=== PATIENT | male | born 1975 ===

== ENCOUNTER 2018-02-28 11:03 | Emergency (ER) | payer MEDICAID, OTHER ==
[2018-02-28] MEDS ORDERED: Sodium Chloride 0.9% 1,000 ML IV STA (11:28)
--- NOTE | 2018-02-28 11:34 | ED PDOC ---
Arrival/HPI - General Time Seen by Provider: 02/28/18 11:11 Historian: Patient - History of Present Illness Narrative History of Present Illness (Text): 02/28/18 11:34 A 42 year old male, with no significant past medical history, translated by Barb POE in Ma[place], presents to the emergency department complaining of LUQ/ LLQ pain since yesterday. Patient reports having bloody diarrhea associated with the pain. Patient denies fever, chills, nausea, vomiting, no genitourinary problems, tralor exposure, or any other complaints at this time. Also, patient mentions he smokes 1/2 pack daily, occasional drinker, however denies any substance abuse. 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 No nausea or vomiting. No back pain. No genitourinary symptoms. No chest pain palpitations or dyspnea. No dizziness or lightheadedness. No travel or exposure. No fever or chills. He does not appear ill. Works as a mig tig welder. Past Medical History - Provider Review Nursing Documentation Reviewed: Yes Family/Social History - Physician Review Nursing Documentation Reviewed: Yes Family/Social History: No Known Family HX Smoking Status: Light Smoker < 10 Cigarettes Daily Hx Alcohol Use: Yes Frequency of alcohol use: Socially Hx Substance Use: No Allergies/Home Meds Allergies/Adverse Reactions: Allergies No Known Allergies Allergy (Verified 02/28/18 11:26) Review of Systems - Physician Review All systems were reviewed & negative as marked: Yes - Review of Systems Constitutional: absent: Fatigue, Fevers, Night Sweats Respiratory: absent: SOB, Cough Cardiovascular: absent: Chest Pain, Palpitations, Syncope Gastrointestinal: Abdominal Pain (LUQ/LLQ), Diarrhea (bloody), Hematochezia. absent: Constipation, Nausea, Vomiting, Hematemesis Genitourinary Male: absent: Dysuria, Frequency, Hematuria, Urinary Output Changes Neurological: absent: Headache, Dizziness, Focal Weakness Physical Exam Vital Signs Reviewed: Yes Vital Signs Temp Pulse Resp BP Pulse Ox 02/28/18 11:04 98.4 F 81 18 123/83 100 Temperature: Afebrile Blood Pressure: Normal Pulse: Regular Respiratory Rate: Normal Appearance: Positive for: Well-Appearing, Non-Toxic, Comfortable Pain Distress: None Mental Status: Positive for: other (Awake alert and cooperative. Does not appear ill.) - Systems Exam Head: Present: Atraumatic, Normocephalic Pupils: Present: PERRL Extroacular Muscles: Present: EOMI Conjunctiva: Present: Normal Mouth: Present: Moist Mucous Membranes Pharnyx: No: ERYTHEMA, EXUDATE, TONSILS ENLARGED Respiratory/Chest: Present: Clear to Auscultation, Good Air Exchange. No: Respiratory Distress, Accessory Muscle Use Cardiovascular: Present: Regular Rate and Rhythm, Normal S1, S2. No: Murmurs Abdomen: Present: Tenderness (mild LUQ/LLQ tenderness), Normal Bowel Sounds. No : Distention, Peritoneal Signs, Rebound, Guarding Rectal: Present: Gross Blood (Bright red blood on rectal exam), Normal Rectal Tone. No: Rectal Tenderness, Melena, Hemorrhoids, Fissures, Nodule/Mass/Lesions Back: Present: Normal Inspection. No: CVA Tenderness, Midline Tenderness, Paraspinal Tenderness Upper Extremity: Present: Normal Inspection. No: Cyanosis, Edema Lower Extremity: Present: Normal Inspection. No: Edema Neurological: Present: GCS=15, CN II-XII Intact, Speech Normal. No: Motor Func Grossly Intact Skin: Present: Warm, Dry, Normal Color. No: Rashes Psychiatric: Present: Alert, Oriented x 3, Normal Insight, Normal Concentration Medical Decision Making ED Course and Treatment: 02/28/18 11:38 Impression: 42 year old male with LUQ/LLQ pain with associated bloody diarrhea. Physical exam shows mild LUQ/LLQ tenderness, no guarding/rebound. Plan: -- Abd/Pelvis CT -- Labs -- Protonix -- IV Fluids -- Toradol -- Stool Culture -- Urinalysis -- Reassess and disposition Progress Notes: 02/28/2018 12:47 Abd/Pelvis CT IMPRESSION: Colonic diverticulosis without evidence of diverticulitis. Otherwise unremarkable examination. Dictator: Edis Ying MD 02/28/18 13:08 Symptoms are markedly improved. - Lab Interpretations Lab Results: 02/28/18 12:00 02/28/18 12:00 Lab Results 02/28/18 12:00: Urine Color Light yellow, Urine Appearance Clear, Urine pH 6.0, Ur Specific [place] <= 1.005, Urine Protein Negative, Urine Glucose (UA) Negative, Urine Ketones Negative, Urine Blood Negative, Urine Nitrate Negative, Urine Bilirubin Negative, Urine Urobilinogen 0.2, Ur Leukocyte Esterase Negative 02/28/18 12:00: Sodium 138, Potassium 3.9, Chloride 102, Carbon Dioxide 26, Anion Gap 14, BUN 15, Creatinine 0.6 L, Est GFR ( Amer) > 60, Est GFR ( Non-Af Amer) > 60, Random Glucose 88, Calcium 9.2, Magnesium 1.6 L, Total Bilirubin 0.6, AST 27, ALT 29, Alkaline Phosphatase 87, Total Protein 7.2, Albumin 4.2, Globulin 3.0, Albumin/Globulin Ratio 1.4, Lipase 46 02/28/18 12:00: PT 11.4, INR 0.99, APTT 26.6 02/28/18 12:00: WBC 8.5, RBC 4.28, Hgb 12.9 L, Hct 38.0 L, MCV 88.8, MCH 30.1, MCHC 33.9, RDW 14.5, Plt Count 177, MPV 11.0, Gran % 68.6 H, Lymph % (Auto) 23.1 , [place] % (Auto) 6.6 H, Eos % (Auto) 1.6, Baso % (Auto) 0.1, Gran # 5.82, Lymph # (Auto) 2.0, [place]yer # (Auto) 0.6, Eos # (Auto) 0.1, Baso # (Auto) 0.01 - RAD Interpretation Radiology Orders: 02/28/18 11:28 ABD & PELVIS W/O PO OR IV CONT [CT] Stat CT scan of the abdomen and pelvis is read by the radiologist shows no acute findings. Rod Tape Operator: Radiologist - Medication Orders Current Medication Orders: Discontinued Medications Sodium Chloride (Sodium Chloride 0.9%) 1,000 mls @ 1,000 mls/hr IV .Q1H STA Stop: 02/28/18 12:27 Last Admin: 02/28/18 12:03 Dose: 1,000 mls/hr eMAR Start Stop Document 02/28/18 12:03 HI (Rec: 02/28/18 12:03 [email or web address]) Intravenous Solution Start Date 02/28/18 Start Time 12:03 Ketorolac Tromethamine (Toradol) 15 mg IVP STAT STA Stop: 02/28/18 11:29 Last Admin: 02/28/18 12:04 Dose: 15 mg MAR Pain Assessment Document 02/28/18 12:04 HI (Rec: 02/28/18 12:04 [email or web address] Pain Reassessment Is this a pain reassessment? No Presence of Pain Presence of Pain Yes Pain Scale Used Pain Scale Used Numeric Location Left, Right or Bilateral Left Upper or Lower Lower Pain Location Body Site Abdomen IVP Administration Document 02/28/18 12:04 HI (Rec: 02/28/18 12:04 [email or web address] Charges for Administration # of IVP Administrations 1 Pantoprazole Sodium (Protonix Inj) 40 mg IVP STAT STA Stop: 02/28/18 11:29 Last Admin: 02/28/18 12:04 Dose: 40 mg IVP Administration Document 02/28/18 12:04 HI (Rec: 02/28/18 12:04 [place] [id number]) Charges for Administration # of IVP Administrations 1 - Scribe Statement The provider has reviewed the documentation as recorded by the Jacob Kong Provider Scribe Provider Scribe Attestation: All medical record entries made by the Estheribbeatriz were at my direction and personally dictated by me. I have reviewed the chart and agree that the record accurately reflects my personal performance of the history, physical exam, medical decision making, and the department course for this patient. I have also personally directed, reviewed, and agree with the discharge instructions and disposition. Disposition/Present on Arrival - Present on Arrival Any Indicators Present on Arrival: No History of DVT/PE: No History of Uncontrolled Diabetes: No Urinary Catheter: No History of Decub. Ulcer: No - Disposition Have Diagnosis and Disposition been Completed?: Yes Diagnosis: Dysentery, Abdominal pain, Diarrhea, Gastrointestinal hemorrhage Disposition: HOME/ ROUTINE Disposition Time: 13:09 Patient Plan: Discharge Condition: IMPROVED Discharge Instructions (ExitCare): Gastrointestinal Bleeding, Acute Abdomen ( Belly Pain), Diarrhea in Adolescents and Adults Additional Instructions: Clear liquids overnight. Follow-up with PMD. Follow up in ER as needed. Prescriptions: Pantoprazole Sodium [Protonix] 40 mg PO DAILY #20 ect
[2018-02-28 11:45] VITALS: RESP 18; TEMP 98.4; O2SAT 100
[2018-02-28 12:13] LABS: BASO # 0.01 K/mm3 (0.0-2.0); BASO % 0.1 % (0.0-3.0); EOS # 0.1 (0.0-0.7); EOS % 1.6 % (1.5-5.0); GRAN # 5.82 (1.4-6.5); GRAN % 68.6 % (50.0-68.0); HEMOGLOBIN 12.9 g/dL (14.0-18.0); LYMPH % 23.1 % (22.0-35.0); MEAN CELL VOLUME 88.8 fl (80.0-105.0); MEAN CORPUSCULAR HEMOGLOBIN 30.1 pg (25.0-35.0); MEAN CORPUSCULAR HGB CONC 33.9 g/dl (31.0-37.0); MONO # 0.6 (0.1-0.6); MONO % 6.6 % (1.0-6.0); RBC 4.28 10^6/uL (3.5-6.1); RED CELL DISTRIBUTION WIDTH 14.5 % (11.5-14.5); WHITE BLOOD COUNT 8.5 10^3/ul (4.5-11.0)
[2018-02-28 12:23] LABS: ALB/GLOB RATIO 1.4 (1.1-1.8); ALBUMIN 4.2 g/dL (3.0-4.8); ALT/SGPT 29 U/L (7-56); AST/SGOT 27 U/L (17-59); BLOOD UREA NITROGEN 15 mg/dL (7-21); CALCIUM 9.2 mg/dL (8.4-10.5); GFR AFRICAN-AMERICAN > 60; GFR NON-AFRICAN AMERICAN > 60; LIPASE 46 U/L (23-300)
[2018-02-28 12:25] LABS: INR 0.99; PROTHROMBIN TIME 11.4 SECONDS (9.4-12.5)
[2018-02-28 12:28] LABS: PARTIAL THROMBOPLASTIN TIME 26.6 Seconds (25.1-36.5)
[2018-02-28 12:39] LABS: URINE BILIRUBIN NEGATIVE (NEGATIVE); URINE BLOOD NEGATIVE (NEGATIVE); URINE GLUCOSE (UA) NEGATIVE (NEGATIVE); URINE LEUKOCYTE ESTERASE NEGATIVE Leu/uL (NEGATIVE); URINE PROTEIN NEGATIVE mg/dL (<30 mg/dL); URINE UROBILINOGEN 0.2 E.U./dL (<1 E.U./dL)
[2018-02-28 12:44] LABS: URINE APPEARANCE CLEAR (CLEAR); URINE COLOR LIGHT YELLOW (YELLOW)
--- NOTE | 2018-02-28 12:49 | CT ---
Date of service: 02/28/2018 PROCEDURE: CT Abdomen and Pelvis without intravenous contrast HISTORY: left pain COMPARISON: None. TECHNIQUE: Without contrast.. Contrast dose: 0 Radiation dose: Total exam DLP = 232.67 mGy-cm. This CT exam was performed using one or more of the following dose reduction techniques: Automated exposure control, adjustment of the mA and/or kV according to patient size, and/or use of iterative reconstruction technique. FINDINGS: LOWER THORAX: Unremarkable. LIVER: Unremarkable. No gross lesion or ductal dilatation. GALLBLADDER AND BILE DUCTS: Unremarkable. PANCREAS: Unremarkable. No gross lesion or ductal dilatation. SPLEEN: Unremarkable. ADRENALS: Unremarkable. No mass. KIDNEYS AND URETERS: Unremarkable. No hydronephrosis. No solid mass. No calculus. No ureteral calculus or hydroureter. VASCULATURE: Unremarkable. No aortic aneurysm. BOWEL: Sigmoid diverticulosis. No evidence of diverticulitis. No bowel obstruction. Diverticulosis also seen at the splenic flexure of the colon. APPENDIX: Not identified. No secondary findings to suggest acute appendicitis. PERITONEUM: Unremarkable. No free fluid. No free air. LYMPH NODES: Unremarkable. No enlarged lymph nodes. BLADDER: Unremarkable. REPRODUCTIVE: Normal prostate BONES: No acute fracture. OTHER FINDINGS: None. IMPRESSION: Colonic diverticulosis without evidence of diverticulitis. Otherwise unremarkable examination.
[2018-02-28 13:52] VITALS: BP 123/81; PULSE 71
== END 2018-02-28 14:24 | disposition home or self-care (01) ==
LOC: ED 11:03
DX: K92.2 Gastrointestinal hemorrhage, unspecified (principal); R19.7 Diarrhea, unspecified; A09 Infectious gastroenteritis and colitis, unspecified; R10.9 Unspecified abdominal pain; R10.32 Left lower quadrant pain; F17.210 Nicotine dependence, cigarettes, uncomplicated
CPT/HCPCS: 74176; 80053; 81003; 83690; 83735; 85025; 85610; 85730; 96374; 96375; 99284; C9113; J1885; J7030